=== PATIENT | female | born 1990 | race Asian ===

== ENCOUNTER 2023-09-22 06:28 | Inpatient (IN) | payer OTHER ==
[2023-09-22] VITALS (66 sets, daily range): BP systolic 93–152; BP diastolic 50–87; PULSE 53–96; TEMP 97.7–98.7
[~2023-09-22] VITALS: Ht 170.2 cm; Wt 100.0 kg
--- NOTE | 2023-09-22 06:40 | NUR ---
PATIENT ARRIVED ON UNIT. PATIENT REPORTS CTX AROUND 6-7 MINS APART. PATIENT DENIES LEAKING OF FLUID BUT REPORTS SPOTTING THIS MORNING. EFM AND TOCO INITIATED. SPO2 MONITOR INITIATED.
[2023-09-22] MEDS ORDERED: PRENATAL TABLET PO (07:00)
[2023-09-22] MEDS ORDERED: TUMS500 MG ×2 (07:00→07:01)
--- NOTE | 2023-09-22 07:30 | NUR ---
DIFFICULTY TRACING CONTRACTIONS DUE TO MATERNAL POSITION. TOCO ADJUSTED.
[2023-09-22] MEDS ORDERED: LR 1,000 ML IV SCH (08:15)
--- NOTE | 2023-09-22 08:34 | NUR ---
AT [facility]. [facility] TRACING REVIEWED PLAN OF CARE UPDATED. MD WILL BE BACK AFTER ANOTHER SURGERY TO BREAK WATER.
[2023-09-22 08:53] LABS: EOS % 0.3 % (0.0-4.0); GRAN # 4.4 K/mm3 (1.4-6.5); HEMATOCRIT 37.5 % (37.0-47.0); HEMOGLOBIN 12.7 g/dl (12.5-16.0); LYMPH # 1.2 K/mm3 (1.2-3.4); LYMPH % 18.3 % (20.0-51.0); MEAN CELL VOLUME 95 fl (80.0-100.0); MEAN CORPUSCULAR HEMOGLOBIN 32 pg (27-31); MEAN CORPUSCULAR HGB CONC 34 g/dl (33.0-37.0); MEAN PLATELET VOLUME 11.3 fl (7.4-10.4); MONO # 0.7 K/mm3 (0.1-0.6); MONO % 10.9 % (1.7-9.3); PLATELET COUNT 190 K/mm3 (130-400); RED BLOOD COUNT 3.96 M/mm3 (4.10-5.30); REDCELL DISTRIBUTION WIDTH-CV 13.2 % (11.5-14.5)
[2023-09-22] MEDS ORDERED: ROPivacaine PF 0.2% 200 ML IV ONE (09:24)
--- NOTE | 2023-09-22 09:28 | NUR ---
0928 [place] AT [facility]. PROCEDURE EXPLAINED AND CONSENT OBTAINED. PATIENT SETUP FOR EPIDURAL. SPO2 MONITOR INITIATED. DIFFICULTY TRACING FHR DUE TO MATERNAL POSITION. 0933 SINGLE SHOT ADMINISTERED. 0936 PATIENT TOLERATED PROCEDURE WELL. PATIENT ASSSITED TO LEFT LATERAL POSITION IN BED.
[2023-09-22] MEDS ORDERED: diphenhydrAMINE 25 MG CAP PO PRN (10:00)
[2023-09-22] MEDS ORDERED: ePHEDrine 50 MG/10 ML VIAL IV PRN (10:00)
[2023-09-22] MEDS ORDERED: Ondansetron 4 MG/2 ML VIAL IV PRN (10:00)
[2023-09-22] MEDS ORDERED: diphenhydrAMINE 50 MG/ML 1 ML VIAL IV PRN (10:00)
[2023-09-22] MEDS ORDERED: Naloxone 0.4 MG/ML VIAL IV PRN (10:00)
--- NOTE | 2023-09-22 10:48 | NUR ---
DR YATES AT BEDSIDE. FHR TRACING REVIEWED. PLAN OF CARE UPDATED. SVE @ [id number] /-1. AROM @ 1050, CLEAR FLUID.
--- NOTE | 2023-09-22 12:05 | NUR ---
1149 MATERNAL BLOOD PRESSURE DROP X2. FLUID BOLUS INITIATED. PATIENT REPORT NO SYMPTOMS AT THIS TIME. FHR TRACING IS CATEGORY 1. 1205 MATERNAL BLOOD PRESSURE STILL DECREASED POSITION CHANGE ATTEMPTED. PATIENT STILL REPORTS NO SYMPTOMS AND FHR TRACING IS CATEGORY 1.
[2023-09-22] MEDS ORDERED: LR & Oxytocin 500 ML IV SCH (12:30)
--- NOTE | 2023-09-22 12:35 | NUR ---
MATERNAL BLOOD PRESSURE IMPROVED AND REMAINS STABLE.
--- NOTE | 2023-09-22 13:34 | NUR ---
1334 FHR DECELERATION TO THE 60S TO 90S FOR 8 TO 10MINS. 1335 THIS RN AT BEDSIDE. US ADJUSTED. PATIENT CHECKED AND DETERMINED TO BE 5/90/-1. PATIENT MOVED TO HANDS AND KNEES POSITION. US ADJUSTED. 1337 PITOCIN OFF. O2 APPLIED AT 10L A MIN. FLUID BOLUS INITIATED. 1345 NOTIFIED OF DECELERATION. INSTRUCTION GIVEN TO LEAVE HER IN HAND AND KNEES FOR 5 MORE MINS THEN ROTATE. 1350 PATIENT MOVED TO SEMI FOWLERS IN BED. FHR RETURNED TO BASELINE.
--- NOTE | 2023-09-22 14:48 | NUR ---
AT BEDSIDE. FHR TRACING REVIEWED. PLAN OF CARE UPDATED. SVE @ 104 /-1. AROM AT 1050 CLEAR FLUID.
--- NOTE | 2023-09-22 18:30 | NUR ---
ASSUMED CARE. DISCUSSED POC WITH PT AND . PT WITH GOOD RELIEF WITH EPIDURAL WITH PRESSING THE BUTTON A COUPLE OF TIMES.
--- NOTE | 2023-09-22 19:26 | NUR ---
MD TO BEDSIDE. SVE. ASSISTED PT TO R LATERAL WITH L LEG IN STIRRUP.
--- NOTE | 2023-09-22 20:00 | NUR ---
PT MOVED TO LEFT LATERAL WITH RT LEG IN STIRRUP
--- NOTE | 2023-09-22 20:15 | NUR ---
TO ROOM. YEHUDA. ASSISTED PT TO MOVE INTO THRONE/ROBSON POSITION.
--- NOTE | 2023-09-22 21:00 | NUR ---
SVE PER MD REQUEST AFTER 30+ MIN IN [facility]. 9+ CM, CERVIX ON POSTERIOR SIDE. PT HAVING SOME DISCOMFORT WITH CTX. PRESSED EPIDURAL BOLUS BUTTON A FEW MINUTES AGO. ENCOURAGED HER TO PRESS IT AGAIN IF STILL HAVING PAIN IN 10 MINUTES. PT SAT BACK UP TO [facility].
--- NOTE | 2023-09-22 21:15 | NUR ---
PT MOVED TO LEFT LATERAL POSITION WITH RT LEG IN STIRRUP PER MD REQUEST.
--- NOTE | 2023-09-22 21:50 | NUR ---
PT PLACED IN WALCHER'S POSITION (SUPINE WITH FOOT OF BED LOWERED. LEGS DANGLING ON EITHER SIDE.) PT TOLERATING WELL. NURSE REMAINING AT BEDSIDE.
--- NOTE | 2023-09-22 22:07 | NUR ---
PT ASSISTED INTO HANDS AND KNEES ON BED
--- NOTE | 2023-09-22 22:38 | NUR ---
PT PUSHING WITH CTX. ATTEMPTING TO REDUCE CERVIX. 2244-INCREASED VAGINAL BLEEDING. STOPPED PUSHING. CALLED MD WITH REPORT ON BLEEDING, CERVIX STILL PALPABLE POSTERIORLY.
--- NOTE | 2023-09-22 22:56 | NUR ---
MD AT BEDSIDE. HAD PT PUSH WITH A FEW CONTRACTIONS, ATTEMPTED TO REDUCE CERVIX. 2300-PUSHING EFFORTS STOPPED. MD DISCUSSING OPTIONS WITH PT.
--- NOTE | 2023-09-22 23:10 | NUR ---
HIBICLENS WASH AND SHAVE PREP DONE.
--- NOTE | 2023-09-22 23:26 | NUR ---
2- SLIDE FASTENER REPAIRER TO BEDSIDE. 2325-TO OR PER BED
[2023-09-22] MEDS ORDERED: AZITHROMYCIN 500 MG IV SCH (23:30)
[2023-09-22] MEDS ORDERED: Azithromycin 500 MG in NS 250 ML IV ONE (23:30)
--- NOTE | 2023-09-22 23:30 | NUR ---
PT STILL HAS POSTERIOR CERVIX LEFT ON EXAM DESPITE POSITION CHANGES. CALLED MD TO DISCUSS PLAN.
[2023-09-22] MEDS ORDERED: Ketorolac 30 MG/ML VIAL ONE (23:46)
[2023-09-22] MEDS ORDERED: dexAMETHasone 10 MG/ML VIAL ONE (23:54)
[2023-09-22] MEDS ORDERED: NS 10 ML IV ONE (23:54)
[2023-09-23] VITALS (20 sets, daily range): BP systolic 91–135; BP diastolic 47–90; PULSE 52–86; TEMP 97.7–98.2
[2023-09-23] MEDS ORDERED: Loratadine 10 MG TAB PO PRN (00:30)
[2023-09-23] MEDS ORDERED: Measles/Mumps/Rubella Virus Vaccine Live w Diluent 0.5 ML VIAL SQ SCH (00:30)
[2023-09-23] MEDS ORDERED: Ondansetron 4 MG/2 ML VIAL IV PRN (00:30)
[2023-09-23] MEDS ORDERED: Magnes Hydrox (MOM) 80 MG/ML 30 ML CUP PO PRN (00:30)
[2023-09-23] MEDS ORDERED: Naloxone 0.4 MG/ML VIAL IV PRN (00:30)
[2023-09-23] MEDS ORDERED: oxyCODONE/Acetaminophen 5-325 MG TAB PO PRN (00:30)
[2023-09-23] MEDS ORDERED: LR 1,000 ML IV PRN (00:30)
--- NOTE | 2023-09-23 03:51 | NUR ---
PT HAD CLEAR FLUID DURING LABOR. AFTER DELIVERY OF , MECONIUM NOTED WITH CORD AND BODY STAINING
[2023-09-23] MEDS ORDERED: Ibuprofen 800 MG TAB PO SCH (06:20)
[2023-09-23] MEDS ORDERED: Sennosides/Docusate 8.6-50 MG TAB PO SCH (08:00)
[2023-09-23] MEDS ORDERED: traZODone 50 MG TAB PO PRN (21:00)
[2023-09-24 08:35] VITALS: BP 112/60; PULSE 72; TEMP 97.7
[2023-09-24] MEDS ORDERED: IBU800 M1 PO (08:43)
[2023-09-24] MEDS ORDERED: PERCOCET 325 MG1 TA2 PO (08:43)
[2023-09-24 16:13] VITALS: BP 104/74; PULSE 101; TEMP 98
[2023-09-24 20:30] VITALS: BP 108/62; PULSE 100; TEMP 97.9
[2023-09-25 07:30] VITALS: BP 110/61; PULSE 72
== END 2023-09-25 11:06 | disposition home or self-care (01) | DRG 788 ==
LOC: LDRO 06:28 → LDR 08:07 → OB 09-23 01:00
PROVIDERS: ADMIT Student in an Organized Health Care Education/Training Program
PROC: 10D00Z1 Extraction of Products of Conception, Low, Open Approach (ICD-10-PCS; principal; 2023-09-23)
PROC: 10907ZC Drainage of Amniotic Fluid, Therapeutic from Products of Conception, Via Natural or Artificial Opening (ICD-10-PCS; 2023-09-23)
PROC: 3E033VJ Introduction of Other Hormone into Peripheral Vein, Percutaneous Approach (ICD-10-PCS; 2023-09-23)
DX: O48.0 Post-term pregnancy (principal); Z37.0 Single live birth; O99.213 Obesity complicating pregnancy, third trimester; O99.613 Diseases of the digestive system complicating pregnancy, third trimester; K21.9 Gastro-esophageal reflux disease without esophagitis; O77.0 Labor and delivery complicated by meconium in amniotic fluid; O69.81X0 Labor and delivery complicated by cord around neck, without compression, not applicable or unspecified; Z3A.40 40 weeks gestation of pregnancy
CPT/HCPCS: J0665; J0690; J1100; J1885; J2590; J2795; J7120